=== PATIENT | female | born 1985 | race Caucasian/White ===

== ENCOUNTER → 2016-10-18 | Outpatient (CLI) | payer BC | LOC: LAB 08:07 | DX: Z51.81 Encounter for therapeutic drug level monitoring (principal); Z79.899 Other long term (current) drug therapy ==

== ENCOUNTER → 2021-05-10 | Outpatient (CLI) | payer BC ==
[2021-05-10 10:13] LABS: ALBUMIN 4.2 g/dL (3.5-5.0); POTASSIUM 4.2 mmol/L (3.5-5.1)
[2021-05-10 10:14] LABS: CALCIUM 9.8 mg/dL (8.3-10.5)
[2021-05-10 10:16] LABS: TOTAL PROTEIN 7.5 g/dL (6.4-8.3)
[2021-05-10 10:17] LABS: TOTAL BILIRUBIN 0.8 mg/dL (0.2-1.2)
== END ==
LOC: LAB 09:39
PROVIDERS: Family Medicine
DX: Z00.00 Encounter for general adult medical examination without abnormal findings (principal); Z13.1 Encounter for screening for diabetes mellitus; Z28.3 Underimmunization status; Z13.220 Encounter for screening for lipoid disorders; Z68.28 Body mass index [BMI] 28.0-28.9, adult; R19.4 Change in bowel habit

== ENCOUNTER → 2024-05-01 | Outpatient (CLI) | payer BC | LOC: LAB 16:50 | DX: R05.9 Cough, unspecified (principal) ==

== ENCOUNTER → 2024-08-25 | Outpatient (CLI) | payer BC ==
[2024-08-25 14:28] LABS: BASO # 0.03 K/mm3 (0.02-0.10); EOS # 0.08 K/mm3 (0.04-0.40); HEMOGLOBIN 14.2 g/dL (12.5-16.0); MEAN CELL VOLUME 95 fl (78-100); MEAN CORPUSCULAR HEMOGLOBIN 32 pg (27-31); MEAN CORPUSCULAR HGB CONC 34 g/dL (33-37); MEAN PLATELET VOLUME 10.8 fl (7.4-10.4); MONO # 0.59 K/mm3 (0.20-0.80); NEU # 4.92 K/mm3 (1.40-6.50); PLATELET COUNT 269 K/mm3 (130-400); RED BLOOD COUNT 4.44 M/mm3 (4.10-5.30); RED CELL DISTRIBUTION WIDTH 12.8 % (11.5-14.5); WHITE BLOOD COUNT 8.2 K/mm3 (4.8-10.8)
[2024-08-25 14:37] LABS: ALBUMIN 4.6 g/dL (3.5-5.0)
[2024-08-25 14:38] LABS: CALCIUM 9.9 mg/dL (8.3-10.5)
[2024-08-25 14:39] LABS: TOTAL PROTEIN 7.7 g/dL (6.4-8.3)
[2024-08-25 14:41] LABS: TOTAL BILIRUBIN 0.4 mg/dL (0.2-1.2)
== END ==
LOC: LAB 13:59
PROVIDERS: Family Medicine
DX: M25.552 Pain in left hip (principal); E78.5 Hyperlipidemia, unspecified; I10 Essential (primary) hypertension

== ENCOUNTER → 2024-10-28 | Outpatient (CLI) | payer BC | LOC: RAD 07:20 | DX: S73.192A Other sprain of left hip, initial encounter (principal); X58.XXXA Exposure to other specified factors, initial encounter ==

== ENCOUNTER → 2024-12-05 | Outpatient (CLI) | payer BC ==
[2024-12-05 12:06] LABS: ALBUMIN 4.2 g/dL (3.5-5.0)
[2024-12-05 12:07] LABS: CALCIUM 9.1 mg/dL (8.3-10.5)
[2024-12-05 12:09] LABS: TOTAL PROTEIN 7.3 g/dL (6.4-8.3)
[2024-12-05 12:10] LABS: TOTAL BILIRUBIN 0.4 mg/dL (0.2-1.2)
[2024-12-05 12:12] LABS: BASO # 0.03 K/mm3 (0.02-0.10); EOS # 0.02 K/mm3 (0.04-0.40); EOS % 0.3 % (1.0-5.0); HEMATOCRIT 38.6 % (37.0-47.0); HEMOGLOBIN 13.1 g/dL (12.5-16.0); LYMPH# 1.83 K/mm3 (1.50-4.00); MEAN CELL VOLUME 92 fl (78-100); MEAN CORPUSCULAR HEMOGLOBIN 31 pg (27-31); MEAN CORPUSCULAR HGB CONC 34 g/dL (33-37); MEAN PLATELET VOLUME 10.9 fl (7.4-10.4); MONO # 0.46 K/mm3 (0.20-0.80); NEU # 3.37 K/mm3 (1.40-6.50); PLATELET COUNT 275 K/mm3 (130-400); RED BLOOD COUNT 4.18 M/mm3 (4.10-5.30); WHITE BLOOD COUNT 5.7 K/mm3 (4.8-10.8)
== END ==
LOC: LAB 11:41
PROVIDERS: Family Medicine
DX: I10 Essential (primary) hypertension (principal)